=== PATIENT | male | born 1945 | race Caucasian/White ===

== ENCOUNTER 2018-08-29 06:06 | Inpatient (IN) | payer MEDICARE, BC ==
[2018-08-28 17:36] LABS: ADD MAN DIFF? NO
[2018-08-28 17:39] LABS: WHITE BLOOD COUNT 4.3 10^3/ul (4.8-10.8)
[2018-08-28 17:39] LABS: BASOPHILS % 0.2 % (0.0-2.0); EOSINOPHILS # 0.1 10^3/ul (0.0-0.5); EOSINOPHILS % 2.6 % (0.0-7.0); HEMATOCRIT 40.7 % (42.0-52.0); LYMPHOCYTES # 1.3 10^3/ul (0.8-2.9); LYMPHOCYTES % 29.5 % (15.0-51.0); MEAN CORPUSCULAR HEMOGLOBIN 30.1 pg (29.0-33.0); MEAN CORPUSCULAR HGB CONC 34.4 g/dl (32.0-37.0); MEAN CORPUSCULAR VOLUME 87.5 fl (82.0-101.0); MONOCYTE # 0.5 10^3/ul (0.3-0.9); MONOCYTES % 10.7 % (0.0-11.0); NEUTROPHIL # 2.5 10^3/ul (1.6-7.5); NEUTROPHILS % 56.8 % (39.0-77.0); PLATELET COUNT 122 10^3/UL (140-415); POSITIVE DIFF @See below; RED BLOOD COUNT 4.65 10^6/ul (4.70-6.10); RED CELL DISTRIBUTION WIDTH 12.2 % (11.5-14.5)
[2018-08-28 17:44] LABS: ADD UMIC NO; UR ASCORBIC ACID NEGATIVE (NEGATIVE); UR BILIRUBIN (Dip) NEGATIVE (NEGATIVE); UR BLOOD (Dip) NEGATIVE (NEGATIVE); UR CLARITY CLEAR (CLEAR); UR COLOR YELLOW (YELLOW); UR GLUCOSE (Dip) NEGATIVE (NEGATIVE); UR KETONES (Dip) NEGATIVE (NEGATIVE); UR LEUKOCYTE ESTERASE (Dip) NEGATIVE Leu/ul (NEGATIVE); UR NITRITE (Dip) NEGATIVE (NEGATIVE); UR SPECIFIC GRAVITY (Dip) 1.044 (1.003-1.030); UR TOTAL PROTEIN (Dip) NEGATIVE (NEGATIVE); UR UROBILINOGEN (Dip) NEGATIVE (NEGATIVE)
[2018-08-28 17:58] LABS: PROTIME 13.3 Sec (11.9-14.9)
[2018-08-28 17:59] LABS: ANION GAP 9 (5-13); BLOOD UREA NITROGEN 18 mg/dl (7-20); CALCIUM 8.9 mg/dl (8.4-10.2); CARBON DIOXIDE 28 mmol/L (21-31); CHLORIDE 106 mmol/L (97-110); CREATININE 1.28 mg/dl (0.61-1.24); GLUCOSE 96 mg/dl (70-220); PARTIAL THROMBOPLASTIN TIME 29.4 Sec (23.0-35.0); POTASSIUM 4.6 mmol/L (3.5-5.1); SODIUM 143 mmol/L (135-144)
[2018-08-29] MEDS ORDERED: NITROGLYCERIN 50 MG/D5W 250 ML BTL (07:00)
[2018-08-29] MEDS ORDERED: DOPamine-D5W 1.6 MG/ML 250 ML (07:00)
[2018-08-29] MEDS ORDERED: AMINOCAPROIC ACID 5 GM INJ ×2 (07:00→08:49)
[2018-08-29] MEDS ORDERED: INSULIN HUMAN REGULAR 100 UNIT in SOD CHLORIDE 0.9% 99 ML IV (08:00)
[2018-08-29] MEDS ORDERED: PHENYLephrine 20MG IN 250 ML 250 ML IV (08:00)
[2018-08-29] MEDS ORDERED: EPINEPHrine 4 MG in DEXTROSE 5% 246 ML IV (08:00)
[2018-08-29] MEDS ORDERED: MIDAZOLAM 5 ML ×3 (08:17→15:53)
[2018-08-29] MEDS ORDERED: PHENYLephrine (100 MCG/ML) 5ML SYG ×4 (08:22→11:35)
[2018-08-29] MEDS ORDERED: CEFAZOLIN 1 GM INJ ×2 (08:35→12:48)
[2018-08-29] MEDS ORDERED: HEPARIN 1000 UNITS/ML 10 ML INJ ×2 (08:47→11:02)
[2018-08-29] MEDS ORDERED: POTASSIUM CHLORIDE 40 MEQ INJ (08:48)
[2018-08-29] MEDS ORDERED: ALBUMIN HUMAN 25% 100 ML (08:49)
[2018-08-29] MEDS ORDERED: NA BICARBONATE 8.4% 50 ML SYG (08:49)
[2018-08-29] MEDS ORDERED: MAGNESIUM SULFATE (MG) 50% 10 ML INJ (08:49)
[2018-08-29] MEDS ORDERED: CA CHLORIDE 10% 10 ML SYRINGE (08:49)
[2018-08-29] MEDS ORDERED: PHENYLephrine 10 MG INJ (08:50)
[2018-08-29] MEDS ORDERED: MANNITOL 20% 250 ML IV (08:50)
[2018-08-29] MEDS ORDERED: LIDOCAINE 100 MG SYRINGE (08:50)
[2018-08-29] MEDS ORDERED: FUROSEMIDE 20 MG INJ ×2 (09:45→11:30)
[2018-08-29] MEDS: HEPARIN 1000 UNITS/ML 10 ML INJ (10:28)
[2018-08-29] MEDS: PAPAVERINE 60 MG INJ (10:28)
[2018-08-29] MEDS: VANCOMYCIN 1 GM INJ (10:29)
[2018-08-29] MEDS ORDERED: PROTAMINE 250 MG INJ (12:50)
[2018-08-29 13:56] LABS: IMMEDIATE SPIN CROSSMATCH 1 5
[2018-08-29 13:58] LABS: TYPE AND SCREEN 1
[2018-08-29] MEDS ORDERED: FUROSEMIDE 10 ML (14:22)
[2018-08-29] MEDS ORDERED: LIDOCAINE 2% (SDV) 5 ML INJ (14:58)
[2018-08-29] MEDS ORDERED: ETOMIDATE 20 MG INJ (14:58)
[2018-08-29] MEDS ORDERED: ROCURONIUM 50 MG INJ (14:58)
[2018-08-29] MEDS: GELATIN SIZE 100 SPONGE (15:47)
[2018-08-29] MEDS: DOPamine-D5W 1.6 MG/ML 250 ML IV (16:30)
[2018-08-29] MEDS: NITROGLYCERIN 50 MG/D5W (PMX) 250 ML IV (16:30)
[2018-08-29 16:45] LABS: ADD MAN DIFF? NO
[2018-08-29 16:58] LABS: ABNORMAL IP MESSAGE 1; BASOPHILS % 0.1 % (0.0-2.0); EOSINOPHILS % 0.2 % (0.0-7.0); HEMATOCRIT 29.5 % (42.0-52.0); HEMOGLOBIN 10.4 g/dl (14.0-18.0); LYMPHOCYTES # 1.2 10^3/ul (0.8-2.9); LYMPHOCYTES % 9.7 % (15.0-51.0); MEAN CORPUSCULAR HEMOGLOBIN 29.9 pg (29.0-33.0); MEAN CORPUSCULAR HGB CONC 35.3 g/dl (32.0-37.0); MEAN CORPUSCULAR VOLUME 84.8 fl (82.0-101.0); MEAN PLATELET VOLUME 11.2 fl (7.4-10.4); MONOCYTE # 0.8 10^3/ul (0.3-0.9); MONOCYTES % 6.3 % (0.0-11.0); NEUTROPHIL # 10.5 10^3/ul (1.6-7.5); PLATELET COUNT 83 10^3/UL (140-415); POSITIVE DIFF @See below; RED BLOOD COUNT 3.48 10^6/ul (4.70-6.10); RED CELL DISTRIBUTION WIDTH 11.8 % (11.5-14.5)
[2018-08-29 16:58] LABS: WHITE BLOOD COUNT 12.6 10^3/ul (4.8-10.8)
[2018-08-29] MEDS ORDERED: LORAZEPAM 2 MG INJ IV (17:00)
[2018-08-29] MEDS ORDERED: MEPERIDINE 25 MG INJ IV (17:00)
[2018-08-29] MEDS ORDERED: ONDANSETRON 4 MG INJ IV (17:00)
[2018-08-29] MEDS ORDERED: DIPHENHYDRAMINE 50 MG INJ IV (17:00)
[2018-08-29] MEDS ORDERED: morphine (1 MG/ML) 10ML SYRINGE IV ×2 (17:00)
[2018-08-29 17:07] LABS: ANION GAP 14 (5-13); BLOOD UREA NITROGEN 22 mg/dl (7-20); CALCIUM 8.3 mg/dl (8.4-10.2); CARBON DIOXIDE 24 mmol/L (21-31); CHLORIDE 106 mmol/L (97-110); GLUCOSE 146 mg/dl (70-220); MAGNESIUM 3.1 mg/dl (1.7-2.5); PARTIAL THROMBOPLASTIN TIME 23.5 Sec (23.0-35.0); POTASSIUM 3.9 mmol/L (3.5-5.1); PROTIME 17.4 Sec (11.9-14.9); PT RATIO 1.4; SODIUM 144 mmol/L (135-144)
[2018-08-29 18:08] LABS: AADO2 Arterial 359.2 mmHg (7.0-24.0); Arterial Base Excess -2.6 mmol/L (-3.0-3); Arterial Blood Gas Oxygen Sat 96.4 mmHG (95.0-100.0); Arterial COHb 0.1 % (0.0-3.0); Arterial Fraction of Oxyhgb 95.8 % (93.0-99.0); Arterial HCO3 23.2 mmol/L (22.0-26.0); Arterial MetHb 0.5 % (0.0-1.5); Arterial Total Hemglobin 12.9 g/dl (12.0-18.0); Arterial pCO2 43.7 mmhg (35-45); MODE VENT - AC; Site A-Line
[2018-08-29] MEDS: POTASSIUM CHLORIDE 40 MEQ, CALCIUM CHLORIDE 10% 1 GM in DEXTROSE 5%-0.225% NACL 1,000 ML IV (18:08)
[2018-08-29 18:11] LABS: AADO2 Mixed Venous 408.3 mmHg; MODE VENT - AC; MetHgb Mixed Venous 0.4 %; Mixed Venous Base Excess -2.6 mmol/L; Mixed Venous COHb 0.3 %; Mixed Venous Fraction OxyHgb 74.9 %; Mixed Venous Oxygen Sat 75.4 mmHG (65.0-75.0); Mixed Venous Total Hemglobin 12.4 g/dl; Sample Type BLMV; Site VENOUS LINE
[2018-08-29] MEDS ORDERED: HYDROmorphONE 1 MG/ML SYG IV (18:30)
[2018-08-29] MEDS ORDERED: DEXTROSE 50% 50 ML SYRINGE IV ×2 (18:30)
[2018-08-29] MEDS: POTASSIUM CHLORIDE 50 ML IVPB ×3 (18:33→22:58)
[2018-08-29] MEDS: INSULIN HUMAN REGULAR 100 UNIT in SOD CHLORIDE 0.9% 99 ML IV ×3 (19:39→22:57)
[2018-08-29] MEDS: CEFAZOLIN 1 GM/50 ML (PMX) 50 ML IVPB (19:42)
[2018-08-29] MEDS: ACCU-CHEK XX ×4 (20:38→23:46)
[2018-08-29] MEDS: ATORVASTATIN 40 MG TAB PO (21:00)
[2018-08-29 21:25] LABS: POTASSIUM 3.4 mmol/L (3.5-5.1)
[2018-08-29 23:48] LABS: AADO2 Arterial 131.7 mmHg (7.0-24.0); Arterial Base Excess -2.6 mmol/L (-3.0-3); Arterial Blood Gas Oxygen Sat 97.9 mmHG (95.0-100.0); Arterial COHb 0.3 % (0.0-3.0); Arterial Fraction of Oxyhgb 97.2 % (93.0-99.0); Arterial HCO3 20.8 mmol/L (22.0-26.0); Arterial MetHb 0.4 % (0.0-1.5); Arterial Total Hemglobin 12.4 g/dl (12.0-18.0); Arterial pCO2 31.9 mmhg (35-45); Blood Gas PS 5; MODE VENT - CPAP; Site A-Line
[2018-08-30] MEDS: HYDROmorphONE 0.5 MG/0.5 ML SYG IV ×2 (00:28→15:34)
[2018-08-30] MEDS: ACCU-CHEK XX ×14 (00:31→13:10)
[2018-08-30] MEDS: DOPamine-D5W 1.6 MG/ML 250 ML IV (01:00)
[2018-08-30 02:21] LABS: ADD MAN DIFF? NO
[2018-08-30 02:24] LABS: ABNORMAL IP MESSAGE 1; BASOPHILS % 0.1 % (0.0-2.0); EOSINOPHILS % 0.1 % (0.0-7.0); HEMATOCRIT 30.7 % (42.0-52.0); HEMOGLOBIN 11.1 g/dl (14.0-18.0); LYMPHOCYTES # 0.5 10^3/ul (0.8-2.9); LYMPHOCYTES % 4.6 % (15.0-51.0); MEAN CORPUSCULAR HGB CONC 36.2 g/dl (32.0-37.0); MEAN PLATELET VOLUME 11.4 fl (7.4-10.4); MONOCYTE # 0.8 10^3/ul (0.3-0.9); MONOCYTES % 7.8 % (0.0-11.0); NEUTROPHIL # 9.3 10^3/ul (1.6-7.5); NEUTROPHILS % 86.8 % (39.0-77.0); PLATELET COUNT 107 10^3/UL (140-415); POSITIVE DIFF @See below; RED CELL DISTRIBUTION WIDTH 11.6 % (11.5-14.5)
[2018-08-30 02:24] LABS: WHITE BLOOD COUNT 10.7 10^3/ul (4.8-10.8)
[2018-08-30 02:44] LABS: INR 1.19; PROTIME 15.3 Sec (11.9-14.9); PT RATIO 1.2
[2018-08-30 02:45] LABS: ALANINE AMINOTRANSFERASE 31 IU/L (13-69); ALBUMIN 3.8 g/dl (3.3-4.9); ALBUMIN/GLOBULIN RATIO 1.31; ALKALINE PHOSPHATASE 57 IU/L (42-121); ANION GAP 9 (5-13); ASPARTATE AMINO TRANSFERASE 55 IU/L (15-46); BILIRUBIN,INDIRECT 0.7 mg/dl (0-1.1); BILIRUBIN,TOTAL 0.7 mg/dl (0.2-1.3); BLOOD UREA NITROGEN 20 mg/dl (7-20); CALCIUM 9.1 mg/dl (8.4-10.2); CARBON DIOXIDE 27 mmol/L (21-31); CHLORIDE 110 mmol/L (97-110); CREATININE 1.57 mg/dl (0.61-1.24); GLUCOSE 143 mg/dl (70-220); POTASSIUM 3.6 mmol/L (3.5-5.1); SODIUM 146 mmol/L (135-144); TOTAL PROTEIN 6.7 g/dl (6.1-8.1)
[2018-08-30 02:46] LABS: MAGNESIUM 2.4 mg/dl (1.7-2.5)
[2018-08-30] MEDS: ONDANSETRON 4 MG INJ IV (03:19)
[2018-08-30] MEDS: POTASSIUM CHLORIDE 50 ML IVPB ×2 (03:19→04:27)
[2018-08-30 03:35] LABS: FREE T4 (FREE THYROXINE) 1.23 ng/dl (0.78-2.44)
[2018-08-30 03:48] LABS: THYROID STIMULATING HORMONE 0.675 MIU/L (0.465-4.680)
[2018-08-30 04:05] LABS: AADO2 Arterial 150.4 mmHg (7.0-24.0); Arterial Base Excess 0.4 mmol/L (-3.0-3); Arterial COHb 0.3 % (0.0-3.0); Arterial Fraction of Oxyhgb 97.3 % (93.0-99.0); Arterial HCO3 20.1 mmol/L (22.0-26.0); Arterial MetHb 0.4 % (0.0-1.5); Arterial Total Hemglobin 11.7 g/dl (12.0-18.0); Arterial pCO2 20.2 mmhg (35-45); Blood Gas PS 5; MODE VENT - CPAP; Site A-Line
[2018-08-30] MEDS: INSULIN HUMAN REGULAR 100 UNIT in SOD CHLORIDE 0.9% 99 ML IV (04:21)
[2018-08-30 07:43] LABS: POTASSIUM 4.3 mmol/L (3.5-5.1)
[2018-08-30] MEDS: ASPIRIN (EC) 81 MG TAB PO (08:16)
[2018-08-30] MEDS: POTASSIUM CHLORIDE 40 MEQ, CALCIUM CHLORIDE 10% 1 GM in DEXTROSE 5%-0.225% NACL 1,000 ML IV ×2 (09:54→11:10)
[2018-08-30 18:05] LABS: HEMATOCRIT 29.5 % (42.0-52.0)
[2018-08-30] MEDS: ATORVASTATIN 40 MG TAB PO (21:00)
[2018-08-30] MEDS: HYDROCODONE/APAP (5/325) TAB PO (23:14)
[2018-08-31 04:43] LABS: ADD MAN DIFF? NO
[2018-08-31 04:48] LABS: BASOPHILS % 0.1 % (0.0-2.0); EOSINOPHILS % 0.1 % (0.0-7.0); HEMATOCRIT 28.3 % (42.0-52.0); HEMOGLOBIN 9.5 g/dl (14.0-18.0); LYMPHOCYTES % 6.6 % (15.0-51.0); MEAN CORPUSCULAR HEMOGLOBIN 29.9 pg (29.0-33.0); MEAN CORPUSCULAR HGB CONC 33.6 g/dl (32.0-37.0); MEAN PLATELET VOLUME 11.8 fl (7.4-10.4); MONOCYTE # 1.1 10^3/ul (0.3-0.9); MONOCYTES % 7.4 % (0.0-11.0); NEUTROPHIL # 12.4 10^3/ul (1.6-7.5); NEUTROPHILS % 85.1 % (39.0-77.0); PLATELET COUNT 101 10^3/UL (140-415); RED BLOOD COUNT 3.18 10^6/ul (4.70-6.10); RED CELL DISTRIBUTION WIDTH 12.8 % (11.5-14.5)
[2018-08-31 04:48] LABS: WHITE BLOOD COUNT 14.6 10^3/ul (4.8-10.8)
[2018-08-31 05:06] LABS: ANION GAP 6 (5-13); BLOOD UREA NITROGEN 33 mg/dl (7-20); CALCIUM 8.7 mg/dl (8.4-10.2); CARBON DIOXIDE 29 mmol/L (21-31); CHLORIDE 105 mmol/L (97-110); CREATININE 2.09 mg/dl (0.61-1.24); GLUCOSE 159 mg/dl (70-220); MAGNESIUM 2.4 mg/dl (1.7-2.5); PHOSPHORUS 4.7 mg/dl (2.5-4.9); SODIUM 140 mmol/L (135-144)
[2018-08-31] MEDS: ASPIRIN (EC) 81 MG TAB PO (09:00)
[2018-08-31] MEDS: SOD CHLORIDE 0.45% 1,000 ML IV (09:01)
[2018-08-31] MEDS: HYDROCODONE/APAP (5/325) TAB PO ×2 (12:59→22:57)
[2018-08-31 14:31] LABS: ADD UMIC YES; UR ASCORBIC ACID NEGATIVE (NEGATIVE); UR BACTERIA FEW /HPF (NONE SEEN); UR BILIRUBIN (Dip) NEGATIVE (NEGATIVE); UR BLOOD (Dip) 3+ mg/dL (NEGATIVE); UR CLARITY CLOUDY (CLEAR); UR COLOR AMBER (YELLOW); UR GLUCOSE (Dip) NEGATIVE (NEGATIVE); UR KETONES (Dip) NEGATIVE (NEGATIVE); UR LEUKOCYTE ESTERASE (Dip) NEGATIVE Leu/ul (NEGATIVE); UR NITRITE (Dip) NEGATIVE (NEGATIVE); UR RBC 78 /HPF (0-5); UR SPECIFIC GRAVITY (Dip) 1.019 (1.003-1.030); UR TOTAL PROTEIN (Dip) 2+ mg/dl (NEGATIVE); UR UROBILINOGEN (Dip) 1+ mg/dL (NEGATIVE); UR WBC 19 /HPF (0-5)
[2018-08-31 14:49] LABS: SODIUM,URINE RANDOM < 13 mmol/L (30-90)
[2018-08-31 14:55] LABS: CREATININE,URINE RANDOM 392.71 mg/dl (20-370)
[2018-08-31] MEDS ORDERED: AMIODARONE 150MG/D5W BOLUS 100 ML (15:23)
[2018-08-31] MEDS: AMIODARONE 150MG/D5W BOLUS 100 ML IV (15:29)
[2018-08-31] MEDS: AMIODARONE 900 MG in DEXTROSE 5% 482 ML IV (17:20)
[2018-08-31] MEDS: SOD CHLORIDE 0.9% 500 ML IV (17:20)
[2018-08-31] MEDS: MAGNESIUM SULFATE 2 GM/50 ML 50 ML IVPB (17:59)
[2018-08-31] MEDS: ATORVASTATIN 40 MG TAB PO (20:53)
[2018-08-31] MEDS: ALBUMIN HUMAN 25% 100 ML IV ×2 (20:53→22:58)
[2018-09-01 05:02] LABS: ADD MAN DIFF? NO
[2018-09-01 05:07] LABS: WHITE BLOOD COUNT 14.5 10^3/ul (4.8-10.8)
[2018-09-01 05:07] LABS: ABNORMAL IP MESSAGE 1; BASOPHILS % 0.2 % (0.0-2.0); EOSINOPHILS # 0.1 10^3/ul (0.0-0.5); EOSINOPHILS % 0.5 % (0.0-7.0); HEMATOCRIT 25.6 % (42.0-52.0); HEMOGLOBIN 8.4 g/dl (14.0-18.0); LYMPHOCYTES # 1.1 10^3/ul (0.8-2.9); LYMPHOCYTES % 7.7 % (15.0-51.0); MEAN CORPUSCULAR HEMOGLOBIN 29.9 pg (29.0-33.0); MEAN CORPUSCULAR HGB CONC 32.8 g/dl (32.0-37.0); MEAN CORPUSCULAR VOLUME 91.1 fl (82.0-101.0); MEAN PLATELET VOLUME 12.6 fl (7.4-10.4); MONOCYTES % 6.6 % (0.0-11.0); NEUTROPHIL # 12.3 10^3/ul (1.6-7.5); NEUTROPHILS % 84.9 % (39.0-77.0); PLATELET COUNT 93 10^3/UL (140-415); POSITIVE DIFF @See below; RED BLOOD COUNT 2.81 10^6/ul (4.70-6.10); RED CELL DISTRIBUTION WIDTH 12.7 % (11.5-14.5)
[2018-09-01 05:39] LABS: ANION GAP 10 (5-13); BLOOD UREA NITROGEN 46 mg/dl (7-20); CALCIUM 7.8 mg/dl (8.4-10.2); CARBON DIOXIDE 25 mmol/L (21-31); CHLORIDE 102 mmol/L (97-110); GLUCOSE 136 mg/dl (70-220); MAGNESIUM 3.1 mg/dl (1.7-2.5); PHOSPHORUS 4.8 mg/dl (2.5-4.9); POTASSIUM 4.5 mmol/L (3.5-5.1); SODIUM 137 mmol/L (135-144)
[2018-09-01] MEDS: HYDROCODONE/APAP (5/325) TAB PO ×2 (06:01→20:13)
[2018-09-01] MEDS: SOD CHLORIDE 0.9% 250 ML IV (08:08)
[2018-09-01] MEDS: ASPIRIN (EC) 81 MG TAB PO (08:08)
[2018-09-01] MEDS: SOD CHLORIDE 0.9% 1,000 ML IV ×2 (08:08→17:29)
[2018-09-01] MEDS ORDERED: POLYETHYLENE GLYCOL 17 GM PACKET PO (13:00)
[2018-09-01] MEDS ORDERED: IPRATROPIUM (NEB) 0.5 MG/2.5 ML AMP HHN (14:00)
[2018-09-01] MEDS: LIDOCAINE 1% (MPF) 5 ML VIAL SC (14:00)
[2018-09-01] MEDS ORDERED: LEVALBUTEROL (NEB) 0.63 MG/3 ML AMP HHN (14:00)
[2018-09-01] MEDS: PANTOPRAZOLE (EC) 40 MG TAB PO (14:31)
[2018-09-01 15:56] LABS: IMMEDIATE SPIN CROSSMATCH 1 1
[2018-09-01 16:11] LABS: CREATININE, RANDOM URINE 381 mg/dL (20-320); MICROALBUMIN 29.8 mg/dL; MICROALBUMIN/CREATININE RATIO 78 (<30)
[2018-09-01] MEDS: ACETAMINOPHEN 325 MG TAB PO (17:28)
[2018-09-01] MEDS: ATORVASTATIN 40 MG TAB PO (20:14)
[2018-09-01] MEDS: DOCUSATE SODIUM 100 MG CAP PO (20:14)
[2018-09-02] MEDS: ALFUZOSIN (SR) 10 MG TAB PO ×2 (00:28→20:08)
[2018-09-02 05:40] LABS: ADD MAN DIFF? NO
[2018-09-02 05:44] LABS: BASOPHILS % 0.2 % (0.0-2.0); EOSINOPHILS # 0.2 10^3/ul (0.0-0.5); EOSINOPHILS % 2.2 % (0.0-7.0); HEMATOCRIT 29.1 % (42.0-52.0); HEMOGLOBIN 9.7 g/dl (14.0-18.0); LYMPHOCYTES # 0.8 10^3/ul (0.8-2.9); LYMPHOCYTES % 8.1 % (15.0-51.0); MEAN CORPUSCULAR HEMOGLOBIN 29.7 pg (29.0-33.0); MEAN CORPUSCULAR HGB CONC 33.3 g/dl (32.0-37.0); MEAN PLATELET VOLUME 11.7 fl (7.4-10.4); MONOCYTE # 0.7 10^3/ul (0.3-0.9); MONOCYTES % 7.6 % (0.0-11.0); NEUTROPHIL # 7.9 10^3/ul (1.6-7.5); NEUTROPHILS % 81.5 % (39.0-77.0); PLATELET COUNT 105 10^3/UL (140-415); POSITIVE DIFF @See below; RED BLOOD COUNT 3.27 10^6/ul (4.70-6.10); RED CELL DISTRIBUTION WIDTH 12.4 % (11.5-14.5)
[2018-09-02 05:44] LABS: WHITE BLOOD COUNT 9.7 10^3/ul (4.8-10.8)
[2018-09-02 06:16] LABS: ANION GAP 11 (5-13); BLOOD UREA NITROGEN 51 mg/dl (7-20); CALCIUM 7.8 mg/dl (8.4-10.2); CARBON DIOXIDE 22 mmol/L (21-31); CHLORIDE 106 mmol/L (97-110); CREATININE 2.21 mg/dl (0.61-1.24); GLUCOSE 111 mg/dl (70-220); PHOSPHORUS 3.7 mg/dl (2.5-4.9); POTASSIUM 4.3 mmol/L (3.5-5.1); SODIUM 139 mmol/L (135-144)
[2018-09-02] MEDS: SOD CHLORIDE 0.9% 1,000 ML IV ×3 (07:00→23:30)
[2018-09-02] MEDS: PANTOPRAZOLE (EC) 40 MG TAB PO (08:00)
[2018-09-02] MEDS: DOCUSATE SODIUM 100 MG CAP PO ×2 (09:00→20:12)
[2018-09-02] MEDS: DIGOXIN 500 MCG INJ IV ×2 (09:38→16:56)
[2018-09-02] MEDS: DUTASTERIDE 0.5 MG CAP PO (09:38)
[2018-09-02] MEDS: ASPIRIN (EC) 81 MG TAB PO (09:38)
[2018-09-02] MEDS: HYDROCODONE/APAP (5/325) TAB PO ×2 (13:03→20:09)
[2018-09-02] MEDS ORDERED: HEPARIN 5,000 UNIT/0.5 ML VIAL ×2 (14:20→20:03)
[2018-09-02] MEDS: HEPARIN 5,000 UNIT/1 ML VIAL SC ×2 (14:29→20:11)
[2018-09-02] MEDS: METOPROLOL 25 MG TAB PO (20:08)
[2018-09-02] MEDS: ATORVASTATIN 40 MG TAB PO (20:08)
[2018-09-03 05:15] LABS: ADD MAN DIFF? NO
[2018-09-03 05:23] LABS: BASOPHILS % 0.3 % (0.0-2.0); EOSINOPHILS # 0.3 10^3/ul (0.0-0.5); EOSINOPHILS % 3.8 % (0.0-7.0); HEMATOCRIT 28.5 % (42.0-52.0); HEMOGLOBIN 9.5 g/dl (14.0-18.0); LYMPHOCYTES % 13.2 % (15.0-51.0); MEAN CORPUSCULAR HEMOGLOBIN 29.8 pg (29.0-33.0); MEAN CORPUSCULAR HGB CONC 33.3 g/dl (32.0-37.0); MEAN CORPUSCULAR VOLUME 89.3 fl (82.0-101.0); MEAN PLATELET VOLUME 11.6 fl (7.4-10.4); MONOCYTE # 0.8 10^3/ul (0.3-0.9); MONOCYTES % 10.2 % (0.0-11.0); NEUTROPHIL # 5.7 10^3/ul (1.6-7.5); NEUTROPHILS % 71.9 % (39.0-77.0); PLATELET COUNT 159 10^3/UL (140-415); RED BLOOD COUNT 3.19 10^6/ul (4.70-6.10); RED CELL DISTRIBUTION WIDTH 12.4 % (11.5-14.5)
[2018-09-03 05:23] LABS: WHITE BLOOD COUNT 7.9 10^3/ul (4.8-10.8)
[2018-09-03 05:49] LABS: ANION GAP 9 (5-13); BLOOD UREA NITROGEN 49 mg/dl (7-20); CALCIUM 7.8 mg/dl (8.4-10.2); CARBON DIOXIDE 24 mmol/L (21-31); CHLORIDE 107 mmol/L (97-110); CREATININE 1.85 mg/dl (0.61-1.24); GLUCOSE 98 mg/dl (70-220); MAGNESIUM 3.3 mg/dl (1.7-2.5); PHOSPHORUS 3.2 mg/dl (2.5-4.9); POTASSIUM 4.3 mmol/L (3.5-5.1); SODIUM 140 mmol/L (135-144)
[2018-09-03 06:08] LABS: B-TYPE NATRIURETIC PEPTIDE 4430 PG/ML (0-125)
[2018-09-03] MEDS: PANTOPRAZOLE (EC) 40 MG TAB PO (06:15)
[2018-09-03] MEDS: DOCUSATE SODIUM 100 MG CAP PO ×2 (07:25→20:41)
[2018-09-03] MEDS ORDERED: HEPARIN 5,000 UNIT/0.5 ML VIAL ×2 (08:33→20:36)
[2018-09-03] MEDS: DUTASTERIDE 0.5 MG CAP PO (08:41)
[2018-09-03] MEDS: HYDROCODONE/APAP (5/325) TAB PO (08:41)
[2018-09-03] MEDS: METOPROLOL 25 MG TAB PO ×3 (08:42→20:48)
[2018-09-03] MEDS: ASPIRIN (EC) 81 MG TAB PO (08:42)
[2018-09-03] MEDS: HEPARIN 5,000 UNIT/1 ML VIAL SC ×2 (08:47→20:56)
[2018-09-03 17:17] LABS: OCCULT BLOOD STOOL NEGATIVE (NEGATIVE)
[2018-09-03] MEDS: HYDROmorphONE 2 MG TAB PO (18:23)
[2018-09-03] MEDS: ATORVASTATIN 40 MG TAB PO (20:41)
[2018-09-03] MEDS: ALFUZOSIN (SR) 10 MG TAB PO (20:41)
[2018-09-04] MEDS: PANTOPRAZOLE (EC) 40 MG TAB PO (05:25)
[2018-09-04] MEDS: HYDROCODONE/APAP (5/325) TAB PO ×3 (05:25→22:50)
[2018-09-04 05:35] LABS: ADD MAN DIFF? NO
[2018-09-04 05:41] LABS: BASOPHILS % 0.3 % (0.0-2.0); EOSINOPHILS # 0.3 10^3/ul (0.0-0.5); EOSINOPHILS % 4.1 % (0.0-7.0); HEMATOCRIT 28.4 % (42.0-52.0); HEMOGLOBIN 9.6 g/dl (14.0-18.0); LYMPHOCYTES # 1.1 10^3/ul (0.8-2.9); LYMPHOCYTES % 15.3 % (15.0-51.0); MEAN CORPUSCULAR HEMOGLOBIN 30.2 pg (29.0-33.0); MEAN CORPUSCULAR HGB CONC 33.8 g/dl (32.0-37.0); MEAN CORPUSCULAR VOLUME 89.3 fl (82.0-101.0); MEAN PLATELET VOLUME 11.1 fl (7.4-10.4); MONOCYTE # 0.8 10^3/ul (0.3-0.9); MONOCYTES % 12.1 % (0.0-11.0); NEUTROPHIL # 4.6 10^3/ul (1.6-7.5); NEUTROPHILS % 67.3 % (39.0-77.0); PLATELET COUNT 167 10^3/UL (140-415); RED BLOOD COUNT 3.18 10^6/ul (4.70-6.10)
[2018-09-04 05:41] LABS: WHITE BLOOD COUNT 6.9 10^3/ul (4.8-10.8)
[2018-09-04 06:11] LABS: ANION GAP 9 (5-13); BLOOD UREA NITROGEN 46 mg/dl (7-20); CALCIUM 8.5 mg/dl (8.4-10.2); CARBON DIOXIDE 24 mmol/L (21-31); CHLORIDE 108 mmol/L (97-110); CREATININE 1.57 mg/dl (0.61-1.24); GLUCOSE 101 mg/dl (70-220); PHOSPHORUS 3.7 mg/dl (2.5-4.9); POTASSIUM 4.7 mmol/L (3.5-5.1); SODIUM 141 mmol/L (135-144)
[2018-09-04] MEDS ORDERED: HEPARIN 5,000 UNIT/0.5 ML VIAL ×2 (08:39→22:09)
[2018-09-04] MEDS: HEPARIN 5,000 UNIT/1 ML VIAL SC ×2 (09:32→22:26)
[2018-09-04] MEDS: DOCUSATE SODIUM 100 MG CAP PO ×2 (09:33→22:24)
[2018-09-04] MEDS: DUTASTERIDE 0.5 MG CAP PO (09:33)
[2018-09-04] MEDS: METOPROLOL 25 MG TAB PO ×2 (09:43→22:24)
[2018-09-04] MEDS: ASPIRIN (EC) 81 MG TAB PO (09:44)
[2018-09-04] MEDS: FUROSEMIDE 20 MG INJ IV (11:56)
[2018-09-04] MEDS: ALFUZOSIN (SR) 10 MG TAB PO (22:24)
[2018-09-04] MEDS: ATORVASTATIN 40 MG TAB PO (22:24)
[2018-09-05 06:29] LABS: B-TYPE NATRIURETIC PEPTIDE 1340 PG/ML (0-125)
[2018-09-05 06:38] LABS: ANION GAP 8 (5-13); BLOOD UREA NITROGEN 44 mg/dl (7-20); CALCIUM 8.6 mg/dl (8.4-10.2); CARBON DIOXIDE 25 mmol/L (21-31); CHLORIDE 107 mmol/L (97-110); CREATININE 1.62 mg/dl (0.61-1.24); GLUCOSE 95 mg/dl (70-220); MAGNESIUM 2.6 mg/dl (1.7-2.5); POTASSIUM 4.7 mmol/L (3.5-5.1); SODIUM 140 mmol/L (135-144)
[2018-09-05] MEDS: PANTOPRAZOLE (EC) 40 MG TAB PO (07:02)
[2018-09-05] MEDS ORDERED: HEPARIN 5,000 UNIT/0.5 ML VIAL (08:45)
[2018-09-05] MEDS: DOCUSATE SODIUM 100 MG CAP PO (08:53)
[2018-09-05] MEDS: METOPROLOL 25 MG TAB PO (08:53)
[2018-09-05] MEDS: ASPIRIN (EC) 81 MG TAB PO (08:53)
[2018-09-05] MEDS: DUTASTERIDE 0.5 MG CAP PO (08:53)
[2018-09-05] MEDS: FUROSEMIDE 20 MG TAB PO (08:54)
[2018-09-05] MEDS: HEPARIN 5,000 UNIT/1 ML VIAL SC (08:59)
[2018-09-05] MEDS: IPRATROPIUM (NEB) 0.5 MG/2.5 ML AMP HHN ×2 (14:45→19:57)
[2018-09-05] MEDS: LEVALBUTEROL (NEB) 0.63 MG/3 ML AMP HHN ×2 (14:45→19:57)
== END 2018-09-05 19:59 | DRG 228 ==
LOC: REC 06:06 → 6WM 09-03 13:59 → ICU 16:26
PROC: 021209W Bypass Coronary Artery, Three Arteries from Aorta with Autologous Venous Tissue, Open Approach (ICD-10-PCS; principal; 2018-08-29 08:00)
PROC: 02C00ZZ Extirpation of Matter from Coronary Artery, One Artery, Open Approach (ICD-10-PCS; 2018-08-29 08:00)
PROC: 02100Z9 Bypass Coronary Artery, One Artery from Left Internal Mammary, Open Approach (ICD-10-PCS; 2018-08-29 08:00)
PROC: 06BP4ZZ Excision of Right Saphenous Vein, Percutaneous Endoscopic Approach (ICD-10-PCS; 2018-08-29 08:00)
PROC: 5A1221Z Performance of Cardiac Output, Continuous (ICD-10-PCS; 2018-08-29 08:00)
PROC: 30233K1 Transfusion of Nonautologous Frozen Plasma into Peripheral Vein, Percutaneous Approach (ICD-10-PCS; 2018-08-29 08:00)
PROC: 30233R1 Transfusion of Nonautologous Platelets into Peripheral Vein, Percutaneous Approach (ICD-10-PCS; 2018-08-29 08:00)
PROC: 30233N1 Transfusion of Nonautologous Red Blood Cells into Peripheral Vein, Percutaneous Approach (ICD-10-PCS; 2018-08-29 08:48)
PROC: 02H633Z Insertion of Infusion Device into Right Atrium, Percutaneous Approach (ICD-10-PCS; 2018-08-29 08:48)
DX: I25.110 Atherosclerotic heart disease of native coronary artery with unstable angina pectoris (principal); N17.0 Acute kidney failure with tubular necrosis; R57.0 Cardiogenic shock; R65.11 Systemic inflammatory response syndrome (SIRS) of non-infectious origin with acute organ dysfunction; J96.01 Acute respiratory failure with hypoxia; D62 Acute posthemorrhagic anemia; E87.0 Hyperosmolality and hypernatremia; J98.11 Atelectasis; D69.6 Thrombocytopenia, unspecified; E78.5 Hyperlipidemia, unspecified; E83.42 Hypomagnesemia; E87.70 Fluid overload, unspecified; I48.91 Unspecified atrial fibrillation; I25.82 Chronic total occlusion of coronary artery; I12.9 Hypertensive chronic kidney disease with stage 1 through stage 4 chronic kidney disease, or unspecified chronic kidney disease; K59.00 Constipation, unspecified; N18.9 Chronic kidney disease, unspecified; N40.0 Benign prostatic hyperplasia without lower urinary tract symptoms; R19.7 Diarrhea, unspecified
CPT/HCPCS: 36430; 36569; 36592; 36600; 71045; 76604; 76775; 76937; 80048; 80053; 81001; 81003; 82043; 82270; 82803; 82962; 83735; 83880; 84100; 84132; 84155; 84300; 84439; 84443; 85014; 85025; 85610; 85730; 86644; 86850; 86900; 86901; 86920; 86945; 87075; 87081; 93005; 93312; 93970; 94002; 94003; 94640; 97110; 97116; 97163; 97166; 97530; 97535

== ENCOUNTER 2018-09-05 20:07 | Inpatient (IN) | payer MEDICARE, BC ==
[2018-09-05] MEDS ORDERED: HYDROCODONE/APAP (5/325) TAB PO (21:30)
[2018-09-05] MEDS ORDERED: HYDROmorphONE 2 MG TAB PO (21:30)
[2018-09-05] MEDS ORDERED: ONDANSETRON 4 MG INJ IV (21:30)
[2018-09-05] MEDS ORDERED: POLYETHYLENE GLYCOL 17 GM PACKET PO (21:30)
[2018-09-05] MEDS ORDERED: HEPARIN 5,000 UNIT/0.5 ML VIAL (22:20)
[2018-09-05] MEDS: METOPROLOL 25 MG TAB PO (22:26)
[2018-09-05] MEDS ORDERED: MAGNESIUM HYDROXIDE 30ML CUP PO (22:30)
[2018-09-05] MEDS ORDERED: ACETAMINOPHEN 325 MG TAB PO (22:30)
[2018-09-05] MEDS: HEPARIN 5,000 UNIT/1 ML VIAL SC (22:30)
[2018-09-05] MEDS ORDERED: LACTULOSE 30ML CUP PO (22:30)
[2018-09-06] MEDS: LEVALBUTEROL (NEB) 0.63 MG/3 ML AMP INH ×3 (02:16→14:00)
[2018-09-06] MEDS: IPRATROPIUM (NEB) 0.5 MG/2.5 ML AMP INH ×3 (02:16→14:00)
[2018-09-06 04:26] LABS: ADD UMIC YES; UR ASCORBIC ACID NEGATIVE (NEGATIVE); UR BACTERIA FEW /HPF (NONE SEEN); UR BILIRUBIN (Dip) NEGATIVE (NEGATIVE); UR BLOOD (Dip) 1+ mg/dL (NEGATIVE); UR CLARITY CLOUDY (CLEAR); UR COLOR YELLOW (YELLOW); UR GLUCOSE (Dip) NEGATIVE (NEGATIVE); UR KETONES (Dip) NEGATIVE (NEGATIVE); UR LEUKOCYTE ESTERASE (Dip) NEGATIVE Leu/ul (NEGATIVE); UR MUCUS FEW /HPF (NONE SEEN); UR NITRITE (Dip) NEGATIVE (NEGATIVE); UR RBC 4 /HPF (0-5); UR SPECIFIC GRAVITY (Dip) 1.017 (1.003-1.030); UR TOTAL PROTEIN (Dip) NEGATIVE (NEGATIVE); UR UROBILINOGEN (Dip) NEGATIVE (NEGATIVE); UR WBC 2 /HPF (0-5)
[2018-09-06] MEDS: PANTOPRAZOLE (EC) 40 MG TAB PO (06:11)
[2018-09-06 06:23] LABS: ADD MAN DIFF? NO
[2018-09-06 06:27] LABS: WHITE BLOOD COUNT 8.4 10^3/ul (4.8-10.8)
[2018-09-06 06:27] LABS: BASOPHILS % 0.2 % (0.0-2.0); EOSINOPHILS # 0.2 10^3/ul (0.0-0.5); EOSINOPHILS % 2.5 % (0.0-7.0); HEMATOCRIT 27.7 % (42.0-52.0); HEMOGLOBIN 9.3 g/dl (14.0-18.0); LYMPHOCYTES # 1.2 10^3/ul (0.8-2.9); LYMPHOCYTES % 13.8 % (15.0-51.0); MEAN CORPUSCULAR HEMOGLOBIN 29.9 pg (29.0-33.0); MEAN CORPUSCULAR HGB CONC 33.6 g/dl (32.0-37.0); MEAN CORPUSCULAR VOLUME 89.1 fl (82.0-101.0); MEAN PLATELET VOLUME 10.8 fl (7.4-10.4); MONOCYTE # 0.9 10^3/ul (0.3-0.9); MONOCYTES % 11.1 % (0.0-11.0); NEUTROPHILS % 71.6 % (39.0-77.0); PLATELET COUNT 204 10^3/UL (140-415); RED BLOOD COUNT 3.11 10^6/ul (4.70-6.10); RED CELL DISTRIBUTION WIDTH 12.2 % (11.5-14.5)
[2018-09-06 07:27] LABS: ALANINE AMINOTRANSFERASE 28 IU/L (13-69); ALBUMIN 3.1 g/dl (3.3-4.9); ALKALINE PHOSPHATASE 56 IU/L (42-121); ANION GAP 9 (5-13); ASPARTATE AMINO TRANSFERASE 38 IU/L (15-46); BILIRUBIN,INDIRECT 0.6 mg/dl (0-1.1); BILIRUBIN,TOTAL 0.6 mg/dl (0.2-1.3); BLOOD UREA NITROGEN 35 mg/dl (7-20); CALCIUM 8.5 mg/dl (8.4-10.2); CARBON DIOXIDE 24 mmol/L (21-31); CHLORIDE 109 mmol/L (97-110); CREATININE 1.42 mg/dl (0.61-1.24); GLUCOSE 94 mg/dl (70-220); POTASSIUM 4.7 mmol/L (3.5-5.1); SODIUM 142 mmol/L (135-144); TOTAL PROTEIN 6.2 g/dl (6.1-8.1)
[2018-09-06] MEDS ORDERED: HEPARIN 5,000 UNIT/0.5 ML VIAL ×2 (08:28→19:21)
[2018-09-06] MEDS: HEPARIN 5,000 UNIT/1 ML VIAL SC ×2 (08:40→20:45)
[2018-09-06] MEDS: METOPROLOL 25 MG TAB PO (09:51)
[2018-09-06] MEDS: GUAIFENESIN/DM 5ML CUP PO ×2 (10:12→15:11)
[2018-09-06] MEDS: FERROUS SULFATE (EC) 325 MG TAB PO ×2 (15:11→20:20)
[2018-09-06] MEDS: ASPIRIN (EC) 81 MG TAB PO (17:19)
[2018-09-06] MEDS: METOPROLOL (XL) 25 MG TAB PO (17:19)
[2018-09-06] MEDS: ATORVASTATIN 40 MG TAB PO (20:20)
[2018-09-06] MEDS: DOCUSATE SODIUM 100 MG CAP PO (20:20)
[2018-09-06] MEDS: SENNA TAB PO (20:46)
[2018-09-07] MEDS: PANTOPRAZOLE (EC) 40 MG TAB PO (06:32)
[2018-09-07 07:12] LABS: ADD MAN DIFF? NO
[2018-09-07 07:21] LABS: WHITE BLOOD COUNT 9.6 10^3/ul (4.8-10.8)
[2018-09-07 07:21] LABS: BASOPHILS % 0.3 % (0.0-2.0); EOSINOPHILS # 0.3 10^3/ul (0.0-0.5); EOSINOPHILS % 3.2 % (0.0-7.0); HEMATOCRIT 29.1 % (42.0-52.0); HEMOGLOBIN 9.7 g/dl (14.0-18.0); LYMPHOCYTES # 1.3 10^3/ul (0.8-2.9); LYMPHOCYTES % 13.9 % (15.0-51.0); MEAN CORPUSCULAR HGB CONC 33.3 g/dl (32.0-37.0); MEAN CORPUSCULAR VOLUME 90.1 fl (82.0-101.0); MEAN PLATELET VOLUME 10.7 fl (7.4-10.4); MONOCYTES % 10.2 % (0.0-11.0); NEUTROPHIL # 6.9 10^3/ul (1.6-7.5); NEUTROPHILS % 71.4 % (39.0-77.0); PLATELET COUNT 241 10^3/UL (140-415); RED BLOOD COUNT 3.23 10^6/ul (4.70-6.10)
[2018-09-07 07:50] LABS: ANION GAP 10 (5-13); BLOOD UREA NITROGEN 29 mg/dl (7-20); CALCIUM 8.9 mg/dl (8.4-10.2); CARBON DIOXIDE 24 mmol/L (21-31); CHLORIDE 109 mmol/L (97-110); GLUCOSE 98 mg/dl (70-220); MAGNESIUM 2.2 mg/dl (1.7-2.5); POTASSIUM 4.8 mmol/L (3.5-5.1); SODIUM 143 mmol/L (135-144)
[2018-09-07 07:50] LABS: PHOSPHORUS 3.2 mg/dl (2.5-4.9)
[2018-09-07 07:54] LABS: B-TYPE NATRIURETIC PEPTIDE 1770 PG/ML (0-125)
[2018-09-07] MEDS ORDERED: HEPARIN 5,000 UNIT/0.5 ML VIAL ×2 (08:00→21:35)
[2018-09-07] MEDS: CLOPIDOGREL 75 MG TAB PO (08:49)
[2018-09-07] MEDS: DOCUSATE SODIUM 100 MG CAP PO ×2 (08:49→21:40)
[2018-09-07] MEDS: FERROUS SULFATE (EC) 325 MG TAB PO ×2 (08:49→21:40)
[2018-09-07] MEDS: ASPIRIN (EC) 81 MG TAB PO (08:49)
[2018-09-07] MEDS: METOPROLOL (XL) 25 MG TAB PO (08:50)
[2018-09-07] MEDS: HEPARIN 5,000 UNIT/1 ML VIAL SC ×2 (08:52→21:43)
[2018-09-07] MEDS: GUAIFENESIN/DM 5ML CUP PO ×3 (11:01→19:15)
[2018-09-07] MEDS: SENNA TAB PO (21:40)
[2018-09-07] MEDS: ATORVASTATIN 40 MG TAB PO (21:40)
[2018-09-08] MEDS: PANTOPRAZOLE (EC) 40 MG TAB PO (05:50)
[2018-09-08] MEDS ORDERED: HEPARIN 5,000 UNIT/0.5 ML VIAL ×2 (08:37→19:43)
[2018-09-08 08:49] LABS: ADD MAN DIFF? NO
[2018-09-08] MEDS: CLOPIDOGREL 75 MG TAB PO (08:49)
[2018-09-08] MEDS: ASPIRIN (EC) 81 MG TAB PO (08:49)
[2018-09-08] MEDS: FERROUS SULFATE (EC) 325 MG TAB PO ×2 (08:50→20:31)
[2018-09-08] MEDS: DOCUSATE SODIUM 100 MG CAP PO ×2 (08:50→20:32)
[2018-09-08] MEDS: METOPROLOL (XL) 25 MG TAB PO (08:50)
[2018-09-08] MEDS: HEPARIN 5,000 UNIT/1 ML VIAL SC ×2 (08:51→20:35)
[2018-09-08 09:01] LABS: BASOPHILS % 0.4 % (0.0-2.0); EOSINOPHILS # 0.4 10^3/ul (0.0-0.5); EOSINOPHILS % 3.7 % (0.0-7.0); HEMATOCRIT 29.6 % (42.0-52.0); HEMOGLOBIN 9.6 g/dl (14.0-18.0); LYMPHOCYTES # 1.4 10^3/ul (0.8-2.9); LYMPHOCYTES % 14.3 % (15.0-51.0); MEAN CORPUSCULAR HEMOGLOBIN 29.4 pg (29.0-33.0); MEAN CORPUSCULAR HGB CONC 32.4 g/dl (32.0-37.0); MEAN CORPUSCULAR VOLUME 90.8 fl (82.0-101.0); MONOCYTES % 10.1 % (0.0-11.0); NEUTROPHIL # 6.9 10^3/ul (1.6-7.5); NEUTROPHILS % 70.5 % (39.0-77.0); PLATELET COUNT 250 10^3/UL (140-415); RED BLOOD COUNT 3.26 10^6/ul (4.70-6.10)
[2018-09-08 09:01] LABS: WHITE BLOOD COUNT 9.8 10^3/ul (4.8-10.8)
[2018-09-08 09:16] LABS: ANION GAP 11 (5-13); BLOOD UREA NITROGEN 24 mg/dl (7-20); CALCIUM 8.7 mg/dl (8.4-10.2); CARBON DIOXIDE 23 mmol/L (21-31); CHLORIDE 108 mmol/L (97-110); CREATININE 1.37 mg/dl (0.61-1.24); GLUCOSE 91 mg/dl (70-220); POTASSIUM 4.5 mmol/L (3.5-5.1); SODIUM 142 mmol/L (135-144)
[2018-09-08 09:17] LABS: PHOSPHORUS 3.4 mg/dl (2.5-4.9)
[2018-09-08] MEDS: ACETAMINOPHEN 325/HYDROC 7.5 15 ML CUP PO (15:45)
[2018-09-08] MEDS: ATORVASTATIN 40 MG TAB PO (20:32)
[2018-09-08] MEDS: SENNA TAB PO (20:32)
[2018-09-09] MEDS: PANTOPRAZOLE (EC) 40 MG TAB PO (06:19)
[2018-09-09 07:44] LABS: ANION GAP 9 (5-13); BLOOD UREA NITROGEN 22 mg/dl (7-20); CALCIUM 8.8 mg/dl (8.4-10.2); CARBON DIOXIDE 24 mmol/L (21-31); CHLORIDE 105 mmol/L (97-110); GLUCOSE 100 mg/dl (70-220); MAGNESIUM 1.9 mg/dl (1.7-2.5); PHOSPHORUS 3.6 mg/dl (2.5-4.9); POTASSIUM 4.3 mmol/L (3.5-5.1); SODIUM 138 mmol/L (135-144)
[2018-09-09] MEDS ORDERED: HEPARIN 5,000 UNIT/0.5 ML VIAL (08:43)
[2018-09-09] MEDS: METOPROLOL (XL) 25 MG TAB PO (08:46)
[2018-09-09] MEDS: CLOPIDOGREL 75 MG TAB PO (08:46)
[2018-09-09] MEDS: DOCUSATE SODIUM 100 MG CAP PO (08:47)
[2018-09-09] MEDS: ASPIRIN (EC) 81 MG TAB PO (08:47)
[2018-09-09] MEDS: HEPARIN 5,000 UNIT/1 ML VIAL SC (08:47)
[2018-09-09] MEDS: FERROUS SULFATE (EC) 325 MG TAB PO (08:47)
== END 2018-09-09 11:30 | disposition home health service (06) | DRG 302 ==
LOC: VRC 20:07
PROC: F07Z5FZ Bed Mobility Treatment using Assistive, Adaptive, Supportive or Protective Equipment (ICD-10-PCS; principal; 2018-09-06)
PROC: F07Z8FZ Transfer Training Treatment using Assistive, Adaptive, Supportive or Protective Equipment (ICD-10-PCS; 2018-09-06)
PROC: F07Z9FZ Gait Training/Functional Ambulation Treatment using Assistive, Adaptive, Supportive or Protective Equipment (ICD-10-PCS; 2018-09-06)
PROC: F08Z2FZ Grooming/Personal Hygiene Treatment using Assistive, Adaptive, Supportive or Protective Equipment (ICD-10-PCS; 2018-09-06)
PROC: F08Z1FZ Dressing Techniques Treatment using Assistive, Adaptive, Supportive or Protective Equipment (ICD-10-PCS; 2018-09-06)
PROC: F08Z0FZ Bathing/Showering Techniques Treatment using Assistive, Adaptive, Supportive or Protective Equipment (ICD-10-PCS; 2018-09-06)
DX: I25.110 Atherosclerotic heart disease of native coronary artery with unstable angina pectoris (principal); J96.01 Acute respiratory failure with hypoxia; J95.89 Other postprocedural complications and disorders of respiratory system, not elsewhere classified; J98.11 Atelectasis; N17.9 Acute kidney failure, unspecified; Z95.1 Presence of aortocoronary bypass graft; Z51.89 Encounter for other specified aftercare; I50.9 Heart failure, unspecified; I11.0 Hypertensive heart disease with heart failure; E83.42 Hypomagnesemia; I48.0 Paroxysmal atrial fibrillation; I13.10 Hypertensive heart and chronic kidney disease without heart failure, with stage 1 through stage 4 chronic kidney disease, or unspecified chronic kidney disease; D64.9 Anemia, unspecified; Z74.09 Other reduced mobility; N40.0 Benign prostatic hyperplasia without lower urinary tract symptoms; E78.5 Hyperlipidemia, unspecified; Y83.2 Surgical operation with anastomosis, bypass or graft as the cause of abnormal reaction of the patient, or of later complication, without mention of misadventure at the time of the procedure; Y92.230 Patient room in hospital as the place of occurrence of the external cause; N18.9 Chronic kidney disease, unspecified; Z96.641 Presence of right artificial hip joint; Z79.82 Long term (current) use of aspirin; Z88.0 Allergy status to penicillin; Z87.820 Personal history of traumatic brain injury; Z79.02 Long term (current) use of antithrombotics/antiplatelets
CPT/HCPCS: 80048; 80053; 81001; 83735; 83880; 84100; 85025; 87081; 87086; 94640; 97110; 97116; 97163; 97530; 97535